=== PATIENT | female | born 1990 | race Hispanic/Latino ===

== ENCOUNTER 2017-02-12 07:50 | Emergency (ER) | payer OTHER ==
[2017-02-12 07:59] VITALS: BP 111/69; PULSE 93; RESP 16; TEMP 98.3; O2SAT 100
[2017-02-12] MEDS ORDERED: Sodium Chloride 0.9% 1,000 ML IV STA (08:15)
--- NOTE | 2017-02-12 08:36 | ED PDOC ---
HPI: Abdomen Time Seen by Provider: 02/12/17 08:09 Chief Complaint (Nursing): Abdominal Pain Chief Complaint (Provider): Epigastric and Left Lower Quadrant Pain History Per: Patient History/Exam Limitations: no limitations Onset/Duration Of Symptoms: Days Current Symptoms Are (Timing): Still Present Location Of Pain/Discomfort: Epigastric, LLQ Quality Of Discomfort: Cramping Associated Symptoms: Nausea, Vomiting. denies: Fever Additional Complaint(s): Katherine Ellis, a 27 year old female, presents to the ED complaining of cramping, epigastric and left lower quadrant pain she has been experiencing since last night. The patient states that the pain became worse last night and is now associated with nausea and vomiting. She states that she was prescribed ranitidine and bentyl with no improvement. PMd: Dr. Colon Past Medical History Reviewed: Historical Data, Nursing Documentation, Vital Signs Vital Signs: Last Vital Signs Temp 98.3 F 02/12/17 07:59 Pulse 93 H 02/12/17 07:59 Resp 16 02/12/17 07:59 BP 111/69 02/12/17 07:59 Pulse Ox 100 02/12/17 08:41 - Surgical History Surgical History: No Surg Hx - Family History Family History: States: Unknown Family Hx - Home Medications Home Medications: Ambulatory Orders Medication Instructions Recorded Ciprofloxacin 500 mg PO Q12 #100 ml 02/12/17 Dicyclomine [Dicyclomine HCl] 10 mg PO TID #10 cap 02/12/17 Famotidine [Pepcid] 20 mg PO Q12 #20 tab 02/12/17 Ondansetron [Zofran] 4 mg PO Q8H #10 tab 02/12/17 - Allergies Allergies/Adverse Reactions: Allergies Allergy/AdvReac Type Severity Reaction Status Date / Time No Known Allergies Allergy Verified 02/12/17 08:15 Review of Systems ROS Statement: Except As Marked, All Systems Reviewed And Found Negative Constitutional: Negative for: Fever Gastrointestinal: Positive for: Nausea, Vomiting, Abdominal Pain (epigastric and left lower quadrant pain). Negative for: Diarrhea, Hematemesis Physical Exam - Reviewed Nursing Documentation Reviewed: Yes Vital Signs Reviewed: Yes - Physical Exam Appears: Positive for: Non-toxic, No Acute Distress Head Exam: Positive for: ATRAUMATIC, NORMAL INSPECTION, NORMOCEPHALIC Skin: Positive for: Normal Color, Warm, Dry. Negative for: Rash Eye Exam: Positive for: Normal appearance, EOMI. Negative for: PERRL ENT: Negative for: Normal ENT Inspection (mucous membranes dry) Neck: Positive for: Normal, Painless ROM, Supple Cardiovascular/Chest: Positive for: Regular Rate, Rhythm, Chest Non Tender. Negative for: Tachycardia Respiratory: Positive for: Normal Breath Sounds. Negative for: Rales, Rhonchi, Wheezing, Respiratory Distress Gastrointestinal/Abdominal: Positive for: Bowel Sounds, Soft, Tenderness ( tenderness to left lower quadrant and epigatric area), Guarding. Negative for: Normal Exam, Rebound Back: Positive for: Normal Inspection. Negative for: L CVA Tenderness, R CVA Tenderness Neurologic/Psych: Positive for: Alert, Oriented - Laboratory Results Result Diagrams: 02/12/17 08:40 02/12/17 08:40 - ECG O2 Sat by Pulse Oximetry: 100 (RA) Pulse Ox Interpretation: Normal Medical Decision Making Medical Decision Makin Initial Impression: 27 year old female presenting with lft lower quadrant and epigastric pain Initial Plan: * CMP * Lipase * Udip * Upreg * CBC * Bentyl 10mg PO * NS 1000ml iV 250mls/hr * Pepcid 20mg IVP * Zofran 4mg IVP * Reevaluation Scribe Attestation Documented by Angie Gan acting as a scribe for Isaiah Loving MD. Provider Attestation All medical record entries made by the Scribe were at my direction and personally dictated by me. I have reviewed the chart and agree that the record accurately reflects my personal performance of the history, physical exam, medical decision making, and the department course for this patient. I have also personally directed, reviewed, and agree with the discharge instructions and disposition. Disposition - Clinical Impression Clinical Impression: Gastritis, Colitis - Patient ED Disposition Is Patient to be Admitted: No Counseled Patient/Family Regarding: Studies Performed, Diagnosis, Need For Followup, Rx Given - Disposition Referrals: Jaun Hoyt MD, PhD [Staff Provider] - Disposition: Routine/Home Disposition Time: 12:40 Condition: FAIR Prescriptions: Ciprofloxacin 500 mg PO Q12 #100 ml Dicyclomine [Dicyclomine HCl] 10 mg PO TID #10 cap Famotidine [Pepcid] 20 mg PO Q12 #20 tab Ondansetron [Zofran] 4 mg PO Q8H #10 tab Instructions: Gastritis (ED), Colitis (ED) Forms: [employer] (German)
[2017-02-12 08:49] LABS: BASO % 0.4 % (0.0-2.0); EOS % 0.3 % (0.0-4.0); HEMATOCRIT 40.3 % (34.0-47.0); LYMPH # 1.2 K/uL (1.0-4.3); LYMPH % 14.9 % (20.0-40.0); MEAN CELL VOLUME 88.9 fl (81.0-99.0); MEAN CORPUSCULAR HGB CONC 32.6 g/dL (33.0-37.0); MEAN PLATELET VOLUME 7.8 fl (7.2-11.7); MONO # 0.3 K/uL (0.0-0.8); MONO % 3.5 % (0.0-10.0); NEUT # 6.6 K/uL (1.8-7.0); NEUT % 80.9 % (50.0-75.0); RED CELL DISTRIBUTION WIDTH 13.3 % (11.5-14.5); WHITE BLOOD COUNT 8.2 K/uL (4.8-10.8)
[2017-02-12 08:56] LABS: ALB/GLOB RATIO 1.7 (1.0-2.1); ALKALINE PHOSPHATASE 54 U/L (38-126); ALT/SGPT 33 U/L (9-52); AST/SGOT 21 U/L (14-36); BILIRUBIN,TOTAL 0.6 mg/dl (0.2-1.3); BLOOD UREA NITROGEN 6 mg/dl (7-17); CALCIUM 9.5 mg/dL (8.4-10.2); CARBON DIOXIDE 23 mmol/L (22-30); CHLORIDE 107 mmol/L (98-107); GFR AFRICAN-AMERICAN > 60; GLUCOSE,RANDOM 100 mg/dL (65-105); LIPASE 87 U/L (23-300); POTASSIUM 4.2 MMOL/L (3.6-5.0); SODIUM 145 mmol/l (132-148); TOTAL PROTEIN 7.3 G/DL (6.3-8.2)
[2017-02-12] MEDS ORDERED: Sodium Chloride 0.9% 50 ML IV ONE (10:36)
[2017-02-12] MEDS ORDERED: Iohexol 300 100 ML IJ ONE (10:36)
--- NOTE | 2017-02-12 12:18 | CT ---
PROCEDURE: CT Abdomen and Pelvis with contrast HISTORY: left sided abd pain COMPARISON: None available. TECHNIQUE: Contrast dose: 50 cc Omnipaque 300 Radiation dose: Total exam DLP = 263.13 mGy-cm. This CT exam was performed using one or more of the following dose reduction techniques: Automated exposure control, adjustment of the mA and/or kV according to patient size, and/or use of iterative reconstruction technique. FINDINGS: LOWER THORAX: No focal consolidation. No pleural effusion. No pneumothorax. LIVER: Unremarkable. GALLBLADDER AND BILE DUCTS: Unremarkable. PANCREAS: Unremarkable. SPLEEN: Unremarkable. ADRENALS: Unremarkable. KIDNEYS AND URETERS: The kidneys enhance symmetrically. No hydronephrosis or obstructing calculus identified. VASCULATURE: No aortic aneurysm. BOWEL: Stomach is nondistended. Lack of oral contrast limits evaluation for bowel pathology. Bowel loops appear within normal limits of caliber without evidence of obstruction. Mild wall thickening and associated mild inflammatory changes involving distal left colon ; correlate clinically for possibility of colitis. APPENDIX: The appendix is not identified. No secondary signs of acute appendicitis. PERITONEUM: No significant free fluid. No definite free air. LYMPH NODES: No bulky adenopathy identified. BLADDER: Decompressed urinary bladder appears grossly unremarkable. REPRODUCTIVE: Uterus is present. BONES: No acute osseous abnormality is detected. OTHER FINDINGS: None. IMPRESSION: Mild wall thickening and associated mild inflammatory changes involving distal left colon ; correlate clinically for possibility of colitis.
== END 2017-02-12 13:00 | disposition home or self-care (01) ==
LOC: H.ER 07:50
DX: K29.70 Gastritis, unspecified, without bleeding (principal)
CPT/HCPCS: 74177; 80053; 81025; 83690; 85025; 96374; 96375; 99282; J2405; J7040; Q9967